=== PATIENT | male | born 1990 | race American Indian/Alaskan Native ===

== ENCOUNTER 2019-05-14 04:38 | Observation (INO) | payer SELFPAY ==
[2019-05-14] MEDS ORDERED: KEPPRA 1,000 MG/NS 0.75% 100ML 1,000 MG/100 ML BAG IV ONE (05:06)
[2019-05-14 05:26] LABS: Basophils # (Auto) 0.1 K/mm3 (0.0-0.1); Basophils % (Auto) 0.5 % (0.0-1.8); Hemoglobin 13.1 gm/dl (11.8-15.2); Lymphocytes % (Auto) 5.8 % (13.4-35.0); Mean Corpuscular HGB Conc 33 % (32-34); Mean Corpuscular Volume 97 fl (84-94); Monocytes # (Auto) 1.4 K/mm3 (0.0-0.8); Monocytes % (Auto) 8.6 % (0.0-7.3); Platelet Count 239 K/mm3 (140-440); Red Blood Count 4.12 M/mm3 (3.65-5.03); Red Cell Distribution Width 13.6 % (13.2-15.2)
[2019-05-14 05:44] LABS: Calcium 8.9 mg/dL (8.4-10.2)
--- NOTE | 2019-05-14 05:57 | XRay Report ---
CHEST 1 VIEW 05/14/2019 5:30 AM INDICATION / CLINICAL INFORMATION: tachypnea. COMPARISON: None available. FINDINGS: SUPPORT DEVICES: None. HEART / MEDIASTINUM: Cardiac silhouette is upper limits normal in size for AP technique. LUNGS / PLEURA: Suboptimal inspiratory effort No significant pulmonary or pleural abnormality. No pne umothorax. ADDITIONAL FINDINGS: No significant additional findings. IMPRESSION: 1. No acute findings. Signer Name: Anthony Ireland MD Signed: 05/14/2019 5:53 AM Workstation Name: [id number]
[2019-05-14] MEDS ORDERED: NACL 0.9% 1000 ML 1,000 ML IV ONE ×3 (06:10→12:00)
--- NOTE | 2019-05-14 06:55 | Emergency Department Report ---
HPI - General Chief Complaint: Seizure Time Seen by Provider: 05/14/19 06:00 - HPI HPI: 29 yo AA M presents to the ED after apparently having a seizure in bed just prior to presentation. He also had a witnessed seizure in route and was given 2.5 mg of Versed with resolution of the seizures. Prior to this second seizure, apparently the patient was more lucid than upon presentation to the ED and EMS says he has a hx of seizures and the patient said he was compliant with his Keppra. The patient has never been here before and is currently post-ictal and a poor historian. ED Past Medical Hx - Past Medical History Previous Medical History?: Yes Hx Seizures: Yes - Social History Smoking Status: Unknown if ever smoked ED Review of Systems ROS: Stated complaint: SEIZURE Other details as noted in HPI Comment: Unobtainable due to pts medical conditions Physical Exam - Physical Exam Vital Signs: Vital Signs 05/14/19 05/14/19 05/14/19 04:56 05:00 05:15 Temperature 98.4 F Pulse Rate 113 H 114 H 104 H Respiratory 22 36 H 23 Rate Blood Pressure 102/63 O2 Sat by Pulse 83 L Oximetry Physical Exam: GENERAL: Patient is ill-appearing. HENT: Normocephalic. Atraumatic. Patient has moist mucous membranes. EYES: Pupils equal reactive to light bilaterally. NECK: Supple. Trachea is midline. CHEST/LUNGS: Clear to auscultation. There is no respiratory distress noted. HEART/CARDIOVASCULAR: Regular. There is no tachycardia. There is no murmur. ABDOMEN: Abdomen is soft, nontender. Patient has normal bowel sounds. There is no abdominal distention. SKIN: Skin is warm and dry. NEURO: Patient is very sleepy and appears postictal. He is seen spontaneously moving his extremities. Withdraws from painful stimuli. The patient will mumble incoherently. MUSCULOSKELETAL: There is no obvious tenderness or deformity. There is no evidence of acute injury. ED Course Vital Signs 05/14/19 05/14/19 05/14/19 04:56 05:00 05:15 Temperature 98.4 F Pulse Rate 113 H 114 H 104 H Respiratory 22 36 H 23 Rate Blood Pressure 102/63 O2 Sat by Pulse 83 L Oximetry - ABG Interpretation Ph: 7.298 PCO2: 37 PO2: 61 Bicarbonate: 18 Interpretation: metabolic acidosis ED Medical Decision Making - Lab Data Result diagrams: 05/14/19 05:09 05/14/19 05:09 - EKG Data -: EKG Interpreted by Me EKG shows normal: sinus rhythm, axis (borderline left axis deviation), interval s, QRS complexes (incomplete right bundle branch block), ST-T waves Rate: normal - EKG Data When compared to previous EKG there are: previous EKG unavailable Interpretation: other (sinus rhythm, incomplete right bundle branch block) - Radiology Data Radiology results: report reviewed, image reviewed interpreted by me: Chest x-ray does not show any acute process. There are no pleural effusions, obvious pneumonia and there is no pneumothorax. CT HEAD WITHOUT CONTRAST INDICATION / CLINICAL INFORMATION: AMS. Seizure. TECHNIQUE: Axial imaging performed from the skull apex through the skull base without the use of contrast. Sagittal and coronal reformatted images. All CT scans at this location are performed using CT dose reduction for ALARA by means of automated exposure control. COMPARISON: None available. FINDINGS: CEREBRAL PARENCHYMA: No significant abnormality. No acute territorial infarct. HEMORRHAGE: None. EXTRA-AXIAL SPACES: Normal in size and morphology for the patient's age. VENTRICULAR SYSTEM: Normal in size and morphology for the patient's age. MIDLINE SHIFT OR HERNIATION: None. CEREBELLUM / BRAINSTEM: No significant abnormality. CALVARIUM: No significant abnormality. ORBITS: Normal as visualized. PARANASAL SINUSES / MASTOID AIR CELLS: Normal as visualized. SOFT TISSUES of HEAD: No significant abnormality. ADDITIONAL FINDINGS: None. IMPRESSION: Unremarkable CT head. - Medical Decision Making This patient presents after having an alleged seizure prior to arrival and a witnessed seizure in route. A CT scan of the head was done that did not show an y bleed, shift, mass, ischemia or any other acute process. Labs were mostly unremarkable and did not show any etiology of his symptoms. ABG showed some metabolic acidosis. Chest x-ray did not show any acute process. The patient has some hypoxemia and hypoxia but improves with nasal cannula and if necessary a Venturi mask. However the patient has been in the emergency department for about 5 hours prior to admission and still continues to be altered with a post ictal state. For all these reasons, the patient will be admitted to the hospital for further evaluation or treatment was accepted for admission by the hospitalist service. - Differential Diagnosis epilepsy, substance abuse, withdrawal, electrolyte abnormalities, dysrhythm Critical Care Time: Yes Critical care time in (mins) excluding proc time.: 31 Critical care attestation.: If time is entered above; I have spent that time in minutes in the direct care of this critically ill patient, excluding procedure time. Critical care time was spent on this patient and doing his initial evaluation, multiple re- evaluations, ordering and interpretation of labs and imaging, interpretation of ABG, treatment of his hypoxia/hypoxemia, discussion with the hospitalist service. Critical Care Time: 31 minutes ED Disposition Clinical Impression: Seizure, Hypoxemia, Acute metabolic encephalopathy Altered mental status Qualifiers: Altered mental status type: unspecified Qualified Code(s): R41.82 - Altered mental status, unspecified Disposition: DC-09 OP ADMIT IP TO THIS HOSP Is pt being admited?: Yes Condition: Serious Time of Disposition: 09:57
--- NOTE | 2019-05-14 08:34 | Cat Scan Report ---
CT HEAD WITHOUT CONTRAST INDICATION / CLINICAL INFORMATION: AMS. Seizure. TECHNIQUE: Axial imaging performed from the skull apex through the skull base without the use of cont rast. Sagittal and coronal reformatted images. All CT scans at this location are performed using CT dose reduction for ALARA by means of automated exposure control. COMPARISON: None available. FINDINGS: CEREBRAL PARENCHYMA: No significant abnormality. No acute territorial infarct. HEMORRHAGE: None. EXTRA-AXIAL SPACES: Normal in size and morphology for the patient's age. VENTRICULAR SYSTEM: Normal in size and morphology for the patient's age. MIDLINE SHIFT OR HERNIATION: None. CEREBELLUM / BRAINSTEM: No significant abnormality. CALVARIUM: No significant abnormality. ORBITS: Normal as visualized. PARANASAL SINUSES / MASTOID AIR CELLS: Normal as visualized. SOFT TISSUES of HEAD: No significant abnormality. ADDITIONAL FINDINGS: None. IMPRESSION: Unremarkable CT head. Signer Name: Ayaz Bone Jr, MD Signed: 05/14/2019 8:29 AM Workstation Name: [id number]
[2019-05-14 08:43] LABS: Amphetamine Screen,Urine PRESUMPTIVE NEGATIVE; Benzodiazepines Screen,Urine PRESUMPTIVE NEGATIVE; Cannabinoid Screen,Urine PRESUMPTIVE NEGATIVE; Cocaine Screen,Urine PRESUMPTIVE NEGATIVE; Opiate Screen,Urine PRESUMPTIVE NEGATIVE
[2019-05-14 08:59] LABS: Methadone Screen,Urine PRESUMPTIVE NEGATIVE
[2019-05-14 09:37] LABS: Alanine Aminotransferase 24 units/L (7-56); Albumin 3.9 g/dL (3.9-5)
[2019-05-14 09:51] LABS: Bilirubin,Direct < 0.2 mg/dL (0-0.2)
--- NOTE | 2019-05-14 10:09 | History and Physical Report ---
History of Present Illness Date of examination: 05/14/19 Date of admission: 05/14/19 Chief complaint: SEIZURE History of present illness: Requested admission for patient who is a 29 yo AA M presents to the ED after apparently having a seizure in bed just prior to presentation. He also had a witnessed seizure in route and was given 2.5 mg of Versed with resolution of the seizures. Prior to this second seizure, apparently the patient was more lucid than upon presentation to the ED and EMS says he has a hx of seizures and the patient said he was compliant with his Keppra. The patient has never been here before and is currently post-ictal and a poor historian. Patient remains post ictal during my exam, was able to mumble yes to hx of seizure but could not get any information further from him Past History Past Medical History: seizures Past Surgical History: Other (unable to obtain) Social history: full code, other (unable to further illcit) Family history: other (unable to obtain) Medications and Allergies Allergies Allergy/AdvReac Type Severity Reaction Status Date / Time Unable to Assess Allergy Unverified 05/14/19 05:58 Active Meds: Active Medications Acetaminophen (Tylenol) 650 mg PO Q4H PRN PRN Reason: Pain MILD(1-3)/Fever >100.5/AGUIRRE Albuterol (Proventil) 2.5 mg IH Q3HRT PRN PRN Reason: Shortness Of Breath Ondansetron HCl (Zofran) 4 mg IV Q8H PRN PRN Reason: Nausea And Vomiting Sodium Bicarbonate (Sodium Bicarbonate 50meq Syringe) 50 meq IV ONCE ONE Stop: 05/14/19 10:04 Sodium Chloride (Sodium Chloride Flush Syringe 10 Ml) 10 ml IV BID CAL Sodium Chloride (Sodium Chloride Flush Syringe 10 Ml) 10 ml IV PRN PRN PRN Reason: LINE FLUSH Review of Systems ROS unobtainable: due to mental status Constitutional: lethargy, no sweats Neurological: weakness, seizures, change in speech, change in mentation, confusion Exam - Constitutional Vitals: Temp Pulse Resp BP Pulse Ox 98.4 F 81 31 H 119/77 93 05/14/19 05:15 05/14/19 07:30 05/14/19 07:30 05/14/19 07:30 05/14/19 07:30 General appearance: Present: mild distress - EENT Eyes: Present: PERRL. Absent: scleral icterus, conjunctival injection, miosis, mydriasis ENT: hearing intact, clear oral mucosa, no dentition normal, no oropharyngeal erythema, no poor dentition, no thrush, no ulcerations - Neck Neck: Present: supple, normal ROM - Respiratory Respiratory effort: normal Respiratory: bilateral: diminished - Cardiovascular Rhythm: regular Heart Sounds: Present: S1 & S2. Absent: systolic murmur, diastolic murmur - Extremities Extremities: no ischemia, pulses intact, pulses symmetrical, No edema, Full ROM Peripheral Pulses: within normal limits - Abdominal General gastrointestinal: Present: soft, non-tender, non-distended, normal bowel sounds - Integumentary Integumentary: Present: clear, warm, dry - Musculoskeletal Musculoskeletal: other (unble to participate in exam) - Psychiatric Psychiatric: cooperative, other (lathergic) - Neurologic Neurologic: CNII-XII intact, moves all extremities - Allied Health Allied health notes reviewed: nursing Results - Labs CBC & Chem 7: 05/14/19 05:09 05/14/19 05:09 Labs: Laboratory Last Values WBC 16.5 K/mm3 (4.5-11.0) H 05/14/19 05:09 RBC 4.12 M/mm3 (3.65-5.03) 05/14/19 05:09 Hgb 13.1 gm/dl (11.8-15.2) 05/14/19 05:09 Hct 40.0 % (35.5-45.6) 05/14/19 05:09 MCV 97 fl (84-94) H 05/14/19 05:09 MCH 32 pg (28-32) 05/14/19 05:09 MCHC 33 % (32-34) 05/14/19 05:09 RDW 13.6 % (13.2-15.2) 05/14/19 05:09 Plt Count 239 K/mm3 (140-440) 05/14/19 05:09 Lymph % (Auto) 5.8 % (13.4-35.0) L 05/14/19 05:09 [place] % (Auto) 8.6 % (0.0-7.3) H 05/14/19 05:09 Eos % (Auto) 0.0 % (0.0-4.3) 05/14/19 05:09 Baso % (Auto) 0.5 % (0.0-1.8) 05/14/19 05:09 Lymph # 1.0 K/mm3 (1.2-5.4) L 05/14/19 05:09 [place] # 1.4 K/mm3 (0.0-0.8) H 05/14/19 05:09 Eos # 0.0 K/mm3 (0.0-0.4) 05/14/19 05:09 Baso # 0.1 K/mm3 (0.0-0.1) 05/14/19 05:09 Seg Neutrophils % 85.1 % (40.0-70.0) H 05/14/19 05:09 Seg Neutrophils # 14.0 K/mm3 (1.8-7.7) H 05/14/19 05:09 283.59 ng/mlDDU (0-234) H 05/14/19 09:03 POC ABG pH 7.298 (7.35-7.45) L 05/14/19 09:01 POC ABG pCO2 37.5 (35-45) 05/14/19 09:01 POC ABG pO2 61 (80-105) L 05/14/19 09:01 POC ABG HCO3 18.4 (22-26 mml/L) 05/14/19 09:01 POC ABG Total CO2 19 (23-27mmol/L) 05/14/19 09:01 POC ABG O2 Sat 88 05/14/19 09:01 POC ABG Base Excess -8 ((-2) - (+3)mmol/L) 05/14/19 09:01 21 % 05/14/19 09:01 Sodium 140 mmol/L (137-145) 05/14/19 05:09 Potassium 4.9 mmol/L (3.6-5.0) 05/14/19 05:09 Chloride 101.2 mmol/L (98-107) 05/14/19 05:09 Carbon Dioxide 15 mmol/L (22-30) L 05/14/19 05:09 29 mmol/L 05/14/19 05:09 BUN 14 mg/dL (9-20) 05/14/19 05:09 1.7 mg/dL (0.8-1.5) H 05/14/19 05:09 Estimated GFR 57 ml/min 05/14/19 05:09 8 % 05/14/19 05:09 Glucose 124 mg/dL (75-100) H 05/14/19 05:09 Calcium 8.9 mg/dL (8.4-10.2) 05/14/19 05:09 Magnesium 2.30 mg/dL (1.7-2.3) 05/14/19 05:09 0.20 mg/dL (0.1-1.2) 05/14/19 07:23 < 0.2 mg/dL (0-0.2) 05/14/19 07:23 0.0 mg/dL 05/14/19 07:23 AST 37 units/L (5-40) 05/14/19 07:23 ALT 24 units/L (7-56) 05/14/19 07:23 82 units/L (35-129) 05/14/19 07:23 40.0 umol/L (25-60) 05/14/19 07:23 < 0.010 ng/mL (0.00-0.029) 05/14/19 08:51 7.6 g/dL (6.3-8.2) 05/14/19 07:23 3.9 g/dL (3.9-5) 05/14/19 07:23 1.1 % 05/14/19 07:23 Presumptive negative 05/14/19 08:23 Presumptive negative 05/14/19 08:23 Ur Barbiturates Screen Presumptive negative 05/14/19 08:23 Ur Phencyclidine Scrn Presumptive negative 05/14/19 08:23 Ur Amphetamines Screen Presumptive negative 05/14/19 08:23 U Benzodiazepines Scrn Presumptive negative 05/14/19 08:23 Presumptive negative 05/14/19 08:23 U Marijuana (THC) Screen Presumptive negative 05/14/19 08:23 Disclamer 05/14/19 08:23 Plasma/Serum Alcohol < 0.01 % (0-0.07) 05/14/19 07:23 Assessment and Plan Assessment and plan: 29 yo AA M presents to the ED after apparently having a seizure in bed just prior to presentation. He also had a witnessed seizure in route and was given 2.5 mg of Versed with resolution of the seizures. Prior to this second seizure, apparently the patient was more lucid than upon presentation to the ED and EMS says he has a hx of seizures and the patient said he was compliant with his Keppra. The patient has never been here before and is currently post-ictal and a poor historian. Patient remains post ictal during my exam, was able to mumble yes to hx of seizure but could not get any information further from him imaging CT head: Negative Cxr: negative Seizure Acute Metabolic encephalopathy secondary to seizure-post ictal state Metabolic Acidosis with some compensation Hypoxia Leukocytosis Elevated D.dimer SIRS without organ dysfunction Admit to Telemetry Seizure and Aspiration precautions Monitor for any Fever development, low threshold to start work up Hydrate, Hold off on abx at this time. Repeat ABG in am Neurology consult and defer need for MRI to them Ativan PRN Give bicarb Obtain home medications Oxygen via NC due to hypoxia Diet when fully awake Advance Directives: Yes Plan of care discussed with patient/family: Yes
[2019-05-14] MEDS ORDERED: SODIUM CHLORIDE FLUSH SYRINGE 10 ML IV PRN (10:30)
[2019-05-14] MEDS ORDERED: ZOFRAN IV PRN (10:30)
[2019-05-14] MEDS ORDERED: TYLENOL PO PRN (10:30)
[2019-05-14] MEDS ORDERED: ATIVAN IV PRN (10:30)
[2019-05-14] MEDS ORDERED: PROVENTIL IH PRN (11:00)
--- NOTE | 2019-05-14 13:35 | Consultation ---
Past History Past Medical History: seizures Past Surgical History: Other (unable to obtain) Social history: full code, other (unable to further illcit) Family history: other (unable to obtain) Medications and Allergies Allergies Allergy/AdvReac Type Severity Reaction Status Date / Time Unable to Assess Allergy Unverified 05/14/19 05:58 Active Meds: Active Medications Acetaminophen (Tylenol) 650 mg PO Q4H PRN PRN Reason: Pain MILD(1-3)/Fever >100.5/AGUIRRE Albuterol (Proventil) 2.5 mg IH Q3HRT PRN PRN Reason: Shortness Of Breath Sodium Chloride (Nacl 0.9% 1000 Ml) 1,000 mls @ 75 mls/hr IV DIRECT CAL Lorazepam (Ativan) 1 mg IV Q4H PRN PRN Reason: Seizures Ondansetron HCl (Zofran) 4 mg IV Q8H PRN PRN Reason: Nausea And Vomiting Sodium Chloride (Sodium Chloride Flush Syringe 10 Ml) 10 ml IV BID CAL Sodium Chloride (Sodium Chloride Flush Syringe 10 Ml) 10 ml IV PRN PRN PRN Reason: LINE FLUSH Physical Examination - Vital Signs Vital Signs: Vital Signs Pulse Resp 113 H 22 05/14/19 04:56 05/14/19 04:56 Results - Laboratory Findings CBC and BMP: 05/14/19 05:09 05/14/19 05:09 Abnormal Lab Findings: Abnormal Labs 05/14/19 05/14/19 05/14/19 05:09 05:09 09:01 WBC 16.5 H MCV 97 H Lymph % (Auto) 5.8 L [place] % (Auto) 8.6 H Lymph # 1.0 L [place] # 1.4 H Seg Neutrophils % 85.1 H Seg Neutrophils # 14.0 H D-Dimer POC ABG pH 7.298 L POC ABG pO2 61 L Carbon Dioxide 15 L Creatinine 1.7 H Glucose 124 H 05/14/19 09:03 WBC MCV Lymph % (Auto) [place] % (Auto) Lymph # [place] # Seg Neutrophils % Seg Neutrophils # D-Dimer 283.59 H POC ABG pH POC ABG pO2 Carbon Dioxide Creatinine Glucose Assessment and Plan 29 YR OLD WITH HIST OF SEIZURE DISORDER WHO DEVELOPED AN EPISODE OF SEIZURE AND DEVELOPED ANOTHER EPISODE OF SEIZURE WHILE BEING BROUGHT TO THE HOSPITAL. HE WAS GIVEN VERSED ON THE WAY. UPON ADMISSION WORK SHOWED EVIDENCE OF INCREAESD WBC COUNT AND INCREASED NETROPHIL. ELECTROLYTES WERE WITH IN NORMAL LIMIT ALTHOUGH NO CALCIUM AND MAGNESIUM LEVEL WAS CHECKED. CT SACN OF THE HEAD DID NOT SHOW ANY ACUTE OR CHRONIC INTRACRANIAL PROCESS. PHYSICAL EXAMINATION. PATIENT IS DROWSY, MOST LIKELY FROM MEDICATION EFFECT. ANSWERS QUESTIONS APPROPRIATELY AT TIMES AND DOES NOT ANSWER QUESTIONS AT TIMES.MAKES EYE CONTACT. HEART- NORMAL RATE AND RYTHM. CAROTIDS-BOTH PALPABLE, CRANIAL NERVES- ALL WITH IN NORMAL LIMIT.NO FACIAL ASYMMETRY,PUPILS REACT TO LIGHT,EOMI,OTHER CRNIAL NERVES ARE ALSO WITH IN NORMAL LIMIT, MOTOR- NO ASYMMETRY OF STRENGTH BETWEEN UPPER AND LOWER EXTREMITIES ON BOTH SIDES REFLEXES- ALL REFLEXES ARE SYMMETRIC AND ARE WITH IN NORMAL LIMIT WITH BUILATERAL DOWN GOING TOES. SENSORY- GROSSLY WITH IN NORMAL LIMIT. IMPRESSION. 1. RECURRENCE OF SEIZURE IN A KNOWN SEIZURE PATIENT,PROBABLY DUE TO INFECTION OR NON COMPLIANCE WITH MEDICATION 2, MAY ALSO HAVE CALCIUM OR MAGNESIUM ABNORMALITIES ADDITIONALLY. RECOMMEND. 1. PLEASE START HIM ON KEPPRA 500MG BID. 2, SEIZURE PRECAUTION. 3. PLEASE CHECK SERUM ELECTROLYTES INCLUDING CALCIUM AND MAGNESIUM 4. TREAT INFECTION INFECTION CAN PRECIPITATE SEIZURE.
--- NOTE | 2019-05-14 13:52 | Vascular Lab Report ---
DUPLEX DOPPLER LOWER EXTREMITY VEINS, BILATERAL INDICATION: Evaluate for DVT. Elevated d-dimer TECHNIQUE: Duplex doppler imaging was performed through the veins of both lower extremities using ve nous compression and other maneuvers. COMPARISON: No relevant prior imaging study available. FINDINGS: Right Common femoral vein: Negative. Right Superficial femoral vein: Negative. Right Popliteal vein: Negative. Right Calf veins: Negative. Left Common femoral vein: Negative. Left Superficial femoral vein: Negative. Left Popliteal vein: Negative. Left Calf veins: Negative. Additional findings: None.. IMPRESSION: No sonographic evidence for DVT in either lower extremity. Signer Name: Ayaz Bone Jr, MD Signed: 05/14/2019 1:47 PM Workstation Name: [id number]
[2019-05-14 14:42] LABS: Calcium 8.7 mg/dL (8.4-10.2)
[2019-05-14] MEDS ORDERED: APRESOLINE IV PRN (16:35)
[2019-05-14] MEDS: SODIUM CHLORIDE FLUSH SYRINGE 10 ML IV SCH ×2 (16:48→21:55)
[2019-05-14] MEDS: NACL 0.9% 1000 ML 1,000 ML IV SCH (19:04)
[2019-05-14] MEDS: KEPPRA 500 MG in D5W 100 ML IV SCH (21:54)
[2019-05-15] MEDS: NACL 0.9% 1000 ML 1,000 ML IV SCH (06:34)
--- NOTE | 2019-05-15 09:28 | Discharge Summary ---
Providers - Providers Date of Admission: 05/14/19 09:57 Attending physician: PALLAVI LANDIS MD 05/14/19 10:03 Consult to Physician [CONS] Routine Comment: Consulting Provider: LAVELL FOSTER Physician Instructions: Reason For Exam: seizure Primary care physician: [employer] INSPECTOR Hospitalization Reason for admission: seizure Condition: Serious Hospital course: 29 yo AA M presents to the ED after apparently having a seizure in bed just prior to presentation. He also had a witnessed seizure in route and was given 2.5 mg of Versed with resolution of the seizures. Prior to this second seizure, apparently the patient was more lucid than upon presentation to the ED and EMS says he has a hx of seizures and the patient said he was compliant with his Keppra. The patient has never been here before and is currently post-ictal and a poor historian. Patient remains post ictal during my exam, was able to mumble yes to hx of seizure but could not get any information further from him * Electrolytes stable * Patient refused further labs, states he is compliant with his meds, and reaffirms that he does not drive and according to [place] law. Also advised to avoid operating any motorized machinary, swimming, diving till cleared by his PCP * demands to go home * No new complaints. Checked o2 on room air sat * Patient was seen by neurology, restarted on medications. * patient had an angry disposition this am and not willing to answer questions. * He confirmed that he takes Keppra but not to dose, I advised him to continue his home dose medication if at a higher dose than the prescription given imaging CT head: Negative Cxr: negative Seizure Acute Metabolic encephalopathy secondary to seizure-post ictal state Metabolic Acidosis with some compensation Hypoxia Leukocytosis Elevated D.dimer SIRS without organ dysfunction Disposition: DC-01 TO HOME OR SELFCARE Time spent for discharge: 35 mins Core Measure Documentation - Palliative Care Palliative Care/ Comfort Measures: Not Applicable - Core Measures Any of the following diagnoses?: none Exam - Constitutional Vitals: Temp Pulse Resp BP Pulse Ox 98.4 F 71 18 131/68 99 05/15/19 08:00 05/15/19 08:00 05/15/19 08:00 05/15/19 08:00 05/15/19 08:00 General appearance: Present: no acute distress, well-nourished - EENT Eyes: Present: PERRL, EOM intact ENT: hearing intact, clear oral mucosa, dentition normal - Neck Neck: Present: supple, normal ROM - Respiratory Respiratory effort: normal Respiratory: bilateral: CTA - Cardiovascular Rhythm: regular Heart Sounds: Present: S1 & S2. Absent: systolic murmur, diastolic murmur - Extremities Extremities: no ischemia, pulses intact, pulses symmetrical, No edema, normal temperature, normal color, Full ROM Peripheral Pulses: within normal limits - Abdominal General gastrointestinal: Present: soft, non-tender, non-distended, normal bowel sounds - Integumentary Integumentary: Present: clear, warm, dry - Musculoskeletal Musculoskeletal: strength equal bilaterally - Psychiatric Psychiatric: appropriate mood/affect, intact judgment & insight, memory intact, cooperative - Neurologic Neurologic: CNII-XII intact, moves all extremities - Allied Health Allied health notes reviewed: nursing Plan Activity: no driving until cleared by PCP Diet: regular Special Instructions: record daily weights, record daily BP diary, smoking cessation Additional Instructions: Follow with your primary neurologist in 3-5 DAYS Follow up with: PRIMARY CARE, [Primary Care Provider] - 3-5 Days Prescriptions: levETIRAcetam [Keppra TAB] 500 mg PO BID #60 tablet levoFLOXacin [Levaquin] 750 mg PO QDAY #3 tablet
[2019-05-15] MEDS: KEPPRA 500 MG in D5W 100 ML IV SCH (11:47)
[2019-05-15] MEDS: SODIUM CHLORIDE FLUSH SYRINGE 10 ML IV SCH (11:50)
[2019-05-15 12:02] VITALS: BP 120/70
== END 2019-05-15 13:57 | disposition home or self-care (01) ==
LOC: ED 04:38 → 4A 09:57
PROVIDERS: ADMIT Internal Medicine; ATTEND Internal Medicine
DX: R56.9 Unspecified convulsions (principal); R65.10 Systemic inflammatory response syndrome (SIRS) of non-infectious origin without acute organ dysfunction; G93.41 Metabolic encephalopathy; E87.2 Acidosis; R09.02 Hypoxemia; R79.89 Other specified abnormal findings of blood chemistry
CPT/HCPCS: 36415; 70450; 71045; 80048; 80076; 80307; 82140; 82310; 82803; 83735; 84443; 84484; 85025; 85379; 93005; 93010; 93970; 94760; 95819; 96374; 96375; 96376; 99291; G0378; J0360; J1953; J7030; 80320; G0480

== ENCOUNTER 2020-03-14 21:37 | Observation (INO) | payer OTHER ==
[2020-03-14] MEDS ORDERED: levETIRAcetam 1000 MG/NS 0.75% 1,000 MG/100 ML BAG IV ONE (21:45)
--- NOTE | 2020-03-14 21:51 | Emergency Department Report ---
HPI - HPI HPI: Room 3 The patient is a 29-year-old male present with a chief complaint of seizures. Per EMS the patient was picked up at home after having a seizure. The patient was postictal upon EMSs arrival. They said at one point he opened his eyes but never spoke. The patient had another seizure with EMS and was administered Ativan. Patient is currently postictal. EMS states that they are not aware of which medications the patient takes for his seizures or if he has been compliant <ROSAURA PONCE - Last Filed: 03/14/20 21:46> <CATHERINE STRICKLAND - Last Filed: 03/15/20 09:35> - General Time Seen by Provider: 03/14/20 21:45 ED Past Medical Hx - Past Medical History Hx Seizures: Yes - Family History Family history: no significant - Social History Smoking Status: Unknown if ever smoked <ROSAURA PONCE - Last Filed: 03/14/20 21:46> <CATHERINE STRICKLAND - Last Filed: 03/15/20 09:35> - Medications Home Medications: Home Medications Medication Instructions Recorded Confirmed Last Taken Type levETIRAcetam [Keppra TAB] 500 mg PO BID #60 tablet 05/15/19 Unknown Rx levoFLOXacin [Levaquin] 750 mg PO QDAY #3 tablet 05/15/19 Unknown Rx ED Review of Systems ROS: Stated complaint: SEIZURE Other details as noted in HPI Comment: Unobtainable due to pts medical conditions (Postictal) <ROSAURA PONCE - Last Filed: 03/14/20 21:46> ROS: Stated complaint: SEIZURE Other details as noted in HPI <MARCO ACATHERINE - Last Filed: 03/15/20 09:35> Physical Exam - Physical Exam Physical Exam: GENERAL: The patient is well-developed well-nourished male postictal on stretcher with snoring respirations. [] HEENT: Normocephalic. Atraumatic. Pupils 3 mm bilaterally NECK: Supple. Trachea midline CHEST/LUNGS: Clear to auscultation. There is no respiratory distress noted. HEART/CARDIOVASCULAR: Regular. There is no tachycardia. There is no gallop rub or murmur. ABDOMEN: Abdomen is soft, nontender. Patient has normal bowel sounds. There is no abdominal distention. SKIN: There is no rash. There is no edema. There is no diaphoresis. NEURO: The patient is postictal MUSCULOSKELETAL: There is no evidence of acute injury. <ROSAURA PONCE - Last Filed: 03/14/20 21:46> - Physical Exam Vital Signs: Vital Signs 03/14/20 03/14/20 03/15/20 21:37 22:04 02:45 Temperature 98.9 F Pulse Rate 131 H 129 H 94 H Respiratory 34 H 35 H 22 Rate Blood Pressure 126/72 127/80 [Left] O2 Sat by Pulse 92 94 97 Oximetry 03/15/20 03/15/20 03/15/20 05:52 06:00 06:10 Temperature Pulse Rate 90 94 H Respiratory 22 18 18 Rate Blood Pressure 117/84 119/74 [Left] O2 Sat by Pulse 98 95 Oximetry <CATHERINE STRICKLAND - Last Filed: 03/15/20 09:35> ED Course Vital Signs 03/14/20 03/14/20 03/15/20 21:37 22:04 02:45 Temperature 98.9 F Pulse Rate 131 H 129 H 94 H Respiratory 34 H 35 H 22 Rate Blood Pressure 126/72 127/80 [Left] O2 Sat by Pulse 92 94 97 Oximetry 03/15/20 03/15/20 03/15/20 05:52 06:00 06:10 Temperature Pulse Rate 90 94 H Respiratory 22 18 18 Rate Blood Pressure 117/84 119/74 [Left] O2 Sat by Pulse 98 95 Oximetry - Reevaluation(s) Reevaluation #1: 03/15/20 09:34 Patient resting comfortably in her stretcher at this time. Noncontrast CT scan of the brain is reviewed by myself, I do not see acute findings. Formal interpretation is pending. As per Dr. Ponce's recommended plan of care, patient to be admitted for supportive care, rhabdomyolysis, and prolonged postictal state No convulsive activity has been noted since I have Started my shift. <CATHERINE STRICKLAND - Last Filed: 03/15/20 09:35> ED Medical Decision Making - Differential Diagnosis Epilepsy, status epilepticus <ROSAURA PONCE Last Filed: 03/14/20 21:46> - Lab Data Result diagrams: 03/14/20 22:03 03/14/20 22:03 <CATHERINE STRICKLAND - Last Filed: 03/15/20 09:35> Critical care attestation.: If time is entered above; I have spent that time in minutes in the direct care of this critically ill patient, excluding procedure time. <ROSAURA PONCE - Last Filed: 03/14/20 21:46> Critical care attestation.: If time is entered above; I have spent that time in minutes in the direct care of this critically ill patient, excluding procedure time. <CATHERINE STRICKLAND - Last Filed: 03/15/20 09:35> ED Disposition <ROSAURA PONCE - Last Filed: 03/14/20 21:46> Is pt being admited?: Yes Does the pt Need Aspirin: No <CATHERINE STRICKLAND - Last Filed: 03/15/20 09:35> Clinical Impression: Seizure, Rhabdomyolysis, Postictal state Disposition: DC-09 OP ADMIT IP TO THIS HOSP Condition: Good
[2020-03-14] MEDS ORDERED: ONDANSETRON 4 MG/2 ML INJ IV ONE (21:53)
[2020-03-14 22:19] LABS: Basophils # (Auto) 0.1 K/mm3 (0.0-0.1); Basophils % (Auto) 0.4 % (0.0-1.8); Eosinophils # (Auto) 0.1 K/mm3 (0.0-0.4); Eosinophils % (Auto) 0.4 % (0.0-4.3); Hematocrit 42.9 % (35.5-45.6); Hemoglobin 13.7 gm/dl (11.8-15.2); Lymphocytes # (Auto) 2.8 K/mm3 (1.2-5.4); Lymphocytes % (Auto) 18.8 % (13.4-35.0); Mean Corpuscular HGB Conc 32 % (32-34); Mean Corpuscular Volume 100 fl (84-94); Monocytes # (Auto) 0.9 K/mm3 (0.0-0.8); Monocytes % (Auto) 6.1 % (0.0-7.3); Platelet Count 260 K/mm3 (140-440); Red Blood Count 4.29 M/mm3 (3.65-5.03); Red Cell Distribution Width 13.8 % (13.2-15.2)
[2020-03-14 22:35] LABS: Alanine Aminotransferase 37 units/L (7-56); Albumin 4.8 g/dL (3.9-5); BUN/Creatinine Ratio 9; Blood Urea Nitrogen 14 mg/dL (9-20); Hemolysis Index 11
--- NOTE | 2020-03-14 22:48 | XRay Report ---
CHEST 1 VIEW INDICATION / CLINICAL INFORMATION: Multiple seizures, hypoxia. COMPARISON: 05/14/2019 FINDINGS: SUPPORT DEVICES: None. HEART / MEDIASTINUM: No significant abnormality. LUNGS / PLEURA: Questionable subsegmental atelectasis in the right lung base No pneumothorax. ADDITIONAL FINDINGS: No significant additional findings. IMPRESSION: Suboptimal inspiration. Questionable subsegmental atelectasis in the right lung base Signer Name: Samuel Palencia MD FACR Signed: 03/14/2020 10:44 PM Workstation Name: [id number]
[2020-03-14] MEDS ORDERED: LORazepam 2 MG/ML VIAL ONE (23:26)
[2020-03-15] MEDS ORDERED: LORazepam 2 MG/ML VIAL IV ONE (01:48)
[2020-03-15] MEDS ORDERED: SODIUM CHLORIDE 0.9% 1000 ML 1,000 ML IV ONE ×2 (06:13)
--- NOTE | 2020-03-15 09:38 | Cat Scan Report ---
NONENHANCED CT SCAN OF THE HEAD: INDICATION / CLINICAL INFORMATION: 29 years Male; Multiple seizures. TECHNIQUE: Routine CT head without contrast. All CT scans at this location are performed using CT dos e reduction for ALARA by means of automated exposure control. COMPARISON: CT scan of the head from 05/14/2019 FINDINGS: BRAIN / INTRACRANIAL CONTENTS No space taking lesion in the brain especially in the frontal and temporal lobes. No CT findings to s uggest acute parenchymal lesion in the brain. Midline structures are normal. Periventricular and deep hemispheric white matter are symmetric. No obvious sulcation anomaly seen. CT findings remain unchan ged. Given the history of seizures, temporal horn tips are dilated bilaterally. In there is no previous wo rkup for chronic seizures, MRI scan would be helpful to evaluate the hippocampi and focal cortical dy splasia. CRANIOCERVICAL JUNCTION: No significant abnormality. ORBITS: No significant abnormality of visualized orbits. SINUSES / MASTOIDS: No significant abnormality of the visualized paranasal sinuses or mastoid air inez ls. ADDITIONAL FINDINGS: Muscles of mastication appear prominent bilaterally. Is there history of bruxism IMPRESSION: No acute parenchymal lesion in the brain CT findings remain unchanged Tips of the temporal horns are mildly dilated if there is no previous workup for chronic seizures, MR I scan would be helpful to evaluate the hippocampi and to exclude focal cortical dysplasia.. Signer Name: Emily Smith MD Signed: 03/15/2020 9:33 AM Workstation Name: [id number]
[2020-03-15] MEDS ORDERED: ONDANSETRON 4 MG/2 ML INJ IV PRN (11:24)
[2020-03-15] MEDS ORDERED: ACETAMINOPHEN 325 MG TAB PO PRN (11:24)
--- NOTE | 2020-03-15 11:24 | History and Physical Report ---
History of Present Illness Date of examination: 03/15/20 Date of admission: 03/15/20 09:36 Chief complaint: sz d/o History of present illness: The patient is a 29-year-old male present with a chief complaint of seizures. Per EMS the patient was picked up at home after having a seizure. The patient was postictal upon EMSs arrival. They said at one point he opened his eyes but never spoke. The patient had another seizure with EMS and was administered Ativan. Patient is currently postictal. EMS states that they are not aware of which medications the patient takes for his seizures or if he has been compliant. All the history was obtained from the ER record. Past History Past Medical History: seizures Past Surgical History: Other (Unable to obtain due to mental status) Social history: other (Unable to obtain due to mental status) Family history: other (Unable to obtain due to mental status) Medications and Allergies Allergies Allergy/AdvReac Type Severity Reaction Status Date / Time Unable to Assess Allergy Unverified 05/14/19 05:58 Home Medications Medication Instructions Recorded Confirmed Last Taken Type levETIRAcetam [Keppra TAB] 500 mg PO BID #60 tablet 05/15/19 Unknown Rx levoFLOXacin [Levaquin] 750 mg PO QDAY #3 tablet 05/15/19 Unknown Rx Review of Systems ROS unobtainable: due to mental status Exam - Constitutional Vitals: Temp Pulse Resp BP Pulse Ox 98.9 F 94 H 18 119/74 95 03/14/20 21:37 03/15/20 06:10 03/15/20 06:10 03/15/20 06:10 03/15/20 06:10 General appearance: Present: no acute distress, well-nourished - EENT Eyes: Present: PERRL ENT: hearing intact, clear oral mucosa - Neck Neck: Present: supple, normal ROM - Respiratory Respiratory effort: normal Respiratory: bilateral: CTA - Cardiovascular Heart Sounds: Present: S1 & S2. Absent: rub, click - Extremities Extremities: pulses symmetrical, No edema Peripheral Pulses: within normal limits - Abdominal General gastrointestinal: Present: soft, non-tender, non-distended, normal bowel sounds Male genitourinary: Present: normal - Integumentary Integumentary: Present: clear, warm, dry - Musculoskeletal Musculoskeletal: gait normal, strength equal bilaterally - Psychiatric Psychiatric: appropriate mood/affect, intact judgment & insight - Neurologic Neurologic: CNII-XII intact, moves all extremities Results - Labs CBC & Chem 7: 03/14/20 22:03 03/14/20 22:03 Labs: Laboratory Last Values WBC 14.9 K/mm3 (4.5-11.0) H 03/14/20 22:03 RBC 4.29 M/mm3 (3.65-5.03) 03/14/20 22:03 Hgb 13.7 gm/dl (11.8-15.2) 03/14/20 22:03 Hct 42.9 % (35.5-45.6) 03/14/20 22:03 MCV 100 fl (84-94) H 03/14/20 22:03 MCH 32 pg (28-32) 03/14/20 22:03 MCHC 32 % (32-34) 03/14/20 22:03 RDW 13.8 % (13.2-15.2) 03/14/20 22:03 Plt Count 260 K/mm3 (140-440) 03/14/20 22:03 Lymph % (Auto) 18.8 % (13.4-35.0) 03/14/20 22:03 [place] % (Auto) 6.1 % (0.0-7.3) 03/14/20 22:03 Eos % (Auto) 0.4 % (0.0-4.3) 03/14/20 22:03 Baso % (Auto) 0.4 % (0.0-1.8) 03/14/20 22:03 Lymph # 2.8 K/mm3 (1.2-5.4) 03/14/20 22:03 [place] # 0.9 K/mm3 (0.0-0.8) H 03/14/20 22:03 Eos # 0.1 K/mm3 (0.0-0.4) 03/14/20 22:03 Baso # 0.1 K/mm3 (0.0-0.1) 03/14/20 22:03 Seg Neutrophils % 74.3 % (40.0-70.0) H 03/14/20 22:03 Seg Neutrophils # 11.1 K/mm3 (1.8-7.7) H 03/14/20 22:03 Sodium 142 mmol/L (137-145) 03/14/20 22:03 Potassium 4.3 mmol/L (3.6-5.0) 03/14/20 22:03 Chloride 101.3 mmol/L (98-107) 03/14/20 22:03 Carbon Dioxide 12 mmol/L (22-30) L 03/14/20 22:03 Anion Gap 33 mmol/L 03/14/20 22:03 BUN 14 mg/dL (9-20) 03/14/20 22:03 Creatinine 1.5 mg/dL (0.8-1.5) 03/14/20 22:03 Estimated GFR > 60 ml/min 03/14/20 22:03 BUN/Creatinine Ratio 9 % 03/14/20 22:03 Glucose 126 mg/dL (75-100) H 03/14/20 22:03 Calcium 9.0 mg/dL (8.4-10.2) 03/14/20 22:03 Magnesium 2.20 mg/dL (1.7-2.3) 03/14/20 22:03 Total Bilirubin 0.20 mg/dL (0.1-1.2) 03/14/20 22:03 AST 62 units/L (5-40) H 03/14/20 22:03 ALT 37 units/L (7-56) 03/14/20 22:03 Alkaline Phosphatase 81 units/L (35-129) 03/14/20 22:03 Total Creatine Kinase 3430 units/L (55-170) H 03/14/20 22:03 Total Protein 8.4 g/dL (6.3-8.2) H 03/14/20 22:03 Albumin 4.8 g/dL (3.9-5) 03/14/20 22:03 Albumin/Globulin Ratio 1.3 % 03/14/20 22:03 Watson/IV: IV Catheter Type [Left Wrist] INT / Saline Lock Assessment and Plan Assessment and plan: Acute encephalopathy. Etiology secondary to post ictal state from seizure. Continue supportive care and monitor closely. Treat underlying causes. Status epilepticus/seizure disorder. Continue Keppra IV. Neurology consultation. Seizure precautions. Rhabdomyolysis. Continue IV fluid hydration follow-up CK in the morning.
[2020-03-15] MEDS: DEXTROSE 50% IN WATER (25GM) 50 ML SYRINGE IV PRN (13:09)
[2020-03-15] MEDS: SODIUM CHLORIDE 0.9% 1000 ML 1,000 ML IV SCH (13:13)
--- NOTE | 2020-03-15 13:24 | Consultation ---
History of Present Illness Consult date: 03/15/20 Reason for Consult: Seizure Chief complaint: Seizure History of present illness: Patient is a 29 y/o man w/ a h/o seizures. He presented yesterday after he was noted to have had a seizure. He was noted to have another seizure by EMS. Patient was then brought to [facility] for further evaluation. He was reportedly noted to be post-ictal. Of note, patient was admitted with a seizure in May 2019, with a seizure at that time as well, and was started on keppra. It is uncertain if patient has been compliant with it. Past History Past Medical History: seizures Past Surgical History: Other (Unable to obtain due to mental status) Social history: other (Unable to obtain due to mental status) Family history: other (Unable to obtain due to mental status) Medications and Allergies Allergies Allergy/AdvReac Type Severity Reaction Status Date / Time Unable to Assess Allergy Unverified 05/14/19 05:58 Home Medications Medication Instructions Recorded Confirmed Last Taken Type levETIRAcetam [Keppra TAB] 500 mg PO BID #60 tablet 05/15/19 Unknown Rx levoFLOXacin [Levaquin] 750 mg PO QDAY #3 tablet 05/15/19 Unknown Rx Active Meds: Active Medications Acetaminophen (Tylenol) 650 mg PO Q4H PRN PRN Reason: Pain MILD(1-3)/Fever >100.5/AGUIRRE Dextrose (D50w (25gm) Syringe) 50 ml IV Q30MIN PRN; Protocol PRN Reason: Hypoglycemia Last Admin: 03/15/20 13:09 Dose: 50 ml Documented by: Enoxaparin Sodium (Enoxaparin) 40 mg SUB-Q QDAY@2200 CAL Sodium Chloride (Nacl 0.9% 1000 Ml) 1,000 mls @ 75 mls/hr IV DIRECT CAL Last Admin: 03/15/20 13:13 Dose: 75 mls/hr Documented by: Ondansetron HCl (Zofran) 4 mg IV Q8H PRN PRN Reason: Nausea And Vomiting Sodium Chloride (Sodium Chloride Flush Syringe 10 Ml) 10 ml IV BID CAL Sodium Chloride (Sodium Chloride Flush Syringe 10 Ml) 10 ml IV PRN PRN PRN Reason: LINE FLUSH Review of Systems ROS unobtainable: due to mental status Physical Examination - Vital Signs Vital Signs: Vital Signs Temp Pulse Resp BP Pulse Ox 98.9 F 131 H 34 H 126/72 92 03/14/20 21:37 03/14/20 21:37 03/14/20 21:37 03/14/20 21:37 03/14/20 21:37 - Physical Exam Narrative exam: Patient is lethargic, moves arms to phsyical stimulus, nonverbal. No gaze deviation noted. PERRL. Noted to have spontaneous movement in all extremities. Not withdrawing to pain in any extremity. Results - Laboratory Findings CBC and BMP: 03/14/20 22:03 03/14/20 22:03 Abnormal Lab Findings: Abnormal Labs 03/14/20 03/14/20 03/15/20 22:03 22:03 13:16 WBC 14.9 H MCV 100 H [place] # 0.9 H Seg Neutrophils % 74.3 H Seg Neutrophils # 11.1 H Carbon Dioxide 12 L Glucose 126 H POC Glucose 66 L AST 62 H Total Creatine Kinase 3430 H Total Protein 8.4 H Assessment and Plan Patient is a 29 y/o man w/ a h/o seizures, who p/w seizure at home and also noted by EMS en route to hospital. According to the patient's clinical findings, he has had a seizure. Plan: 1. Seizure: - CT head: No acute abnormalities. - Check EEG to rule out status epilepticus. To be interpreted by in-house neurologist. - Increase keppra to 750mg BID. -No driving until cleared by DMV/DPS. - If patient has a seizure lasting >2 minutes, recommend giving ativan 1mg IV stat. If seizure does not resolve within 2 minutes, can repeat x1. Please call p rimary team and neurology stat if patient has a seizure. - Check UDS. - Further workup/management of possible infection/metabolic abnormalities per primary team, as patient found to have elevated WBC. - Will continue to monitor patient. Thank you for allowing me to take part in the care of this patient. Adeel Brasher MD Neurology This clinical encounter was provided via live telemedicine platform. Consultative service was provided for neurology to support local providers. The Acute Teleneurology team should be contacted with any neurologic worsening or clinical changes, new test results, or new patient history that is reported to or discovered by the local team following completion of the teleneurology consultation, specifically that which has the potential to impact the consultat jessica recommendations. Patient/Family was informed the Neurology Consult would happen via TeleHealth consult by way of interactive audio and video telecommunications and consented to receiving care in this manner. Due to the potential for life-threatening deterioration due to underlying neurologic illness, and limited resources available for patient care, telemedicine was used as means of patient care. Telemedicine consultation is limited in the extent of physical exam that can be virtually provided. Time spent evaluating patient includes time for face to face visit via telemedicine, review of medical records, imaging studies and discussion of findings with providers, the patient and/or family.
[2020-03-15] MEDS: levETIRAcetam 750 MG in DEXTROSE 5% IN WATER 100 ML IV SCH ×2 (14:58→21:08)
[2020-03-15] MEDS: ENOXAPARIN 40 MG/0.4 ML INJ SUB-Q SCH (21:08)
[2020-03-16 07:57] LABS: Basophils # (Auto) 0.1 K/mm3 (0.0-0.1); Basophils % (Auto) 0.6 % (0.0-1.8); Eosinophils # (Auto) 0.1 K/mm3 (0.0-0.4); Hemoglobin 13.5 gm/dl (11.8-15.2); Lymphocytes # (Auto) 2.1 K/mm3 (1.2-5.4); Lymphocytes % (Auto) 24.8 % (13.4-35.0); Mean Corpuscular HGB Conc 33 % (32-34); Mean Corpuscular Volume 98 fl (84-94); Monocytes % (Auto) 12.1 % (0.0-7.3); Platelet Count 219 K/mm3 (140-440); Red Blood Count 4.19 M/mm3 (3.65-5.03); Red Cell Distribution Width 13.4 % (13.2-15.2)
[2020-03-16] MEDS: DEXTROSE 50% IN WATER (25GM) 50 ML SYRINGE IV PRN (08:01)
[2020-03-16 08:04] LABS: BUN/Creatinine Ratio 14; Blood Urea Nitrogen 14 mg/dL (9-20); Calcium 9.1 mg/dL (8.4-10.2); Hemolysis Index 15
[2020-03-16] MEDS: levETIRAcetam 750 MG in DEXTROSE 5% IN WATER 100 ML IV SCH ×2 (10:25→22:48)
[2020-03-16] MEDS: SODIUM CHLORIDE 0.9% 1000 ML 1,000 ML IV SCH ×2 (10:25→22:48)
--- NOTE | 2020-03-16 10:52 | Discharge Summary ---
Providers - Providers Date of Admission: 03/15/20 09:36 Date of discharge: 03/17/20 Attending physician: KAYLEN KELLY 03/15/20 11:24 Consult to Physician [CONS] Routine Comment: Consulting Provider: ALEJANDRINA MEDINA Physician Instructions: Reason For Exam: sz d/o Primary care physician: CLOTH PICKER Hospitalization Reason for admission: sz Condition: Good Hospital course: Patient is a 29 y/o man w/ a h/o seizures. He presented yesterday after he was noted to have had a seizure. He was noted to have another seizure by EMS. Patient was then brought to [facility] for further evaluation. He was reportedly noted to be post-ictal. Of note, patient was admitted with a seizure in May 2019, with a seizure at that time as well, and was started on keppra. The patient was admitted with diagnosis of seizure, metabolic acidosis, mild rhabdomyolysis and acute encephalopathy secondary to post ictal state. The patient was restarted on his medication of Keppra and was increased to 750 mg twice daily. Neurology saw the patient in consultation and CT scan of the head was performed which was found to show no acute abnormalities. Neurology reported No driving until cleared by DMV/DPS. The patient received IV fluid hydration and kidney function remained stable. Acidosis resolved. Therefore, patient is felt to receive maximal hospital benefit and will be discharged home after EEG if okay with neurology. Dedicated discharge time 35 minutes. Disposition: DC-01 TO HOME OR SELFCARE Time spent for discharge: 35 - Discharge Diagnoses (1) Postictal state Status: Acute (2) Rhabdomyolysis Status: Acute (3) Seizure Status: Acute (4) Acute metabolic encephalopathy Status: Acute Core Measure Documentation - Palliative Care Palliative Care/ Comfort Measures: Not Applicable - Core Measures Any of the following diagnoses?: none Exam - Constitutional Vitals: Temp Pulse Resp BP Pulse Ox 98.3 F 100 H 18 130/57 90 03/16/20 04:24 03/16/20 04:24 03/16/20 04:24 03/16/20 04:24 03/16/20 04:24 General appearance: Present: no acute distress, well-nourished - EENT Eyes: Present: PERRL ENT: hearing intact, clear oral mucosa - Neck Neck: Present: supple, normal ROM - Respiratory Respiratory effort: normal Respiratory: bilateral: CTA - Cardiovascular Heart Sounds: Present: S1 & S2. Absent: rub, click - Extremities Extremities: pulses symmetrical, No edema Peripheral Pulses: within normal limits - Abdominal General gastrointestinal: Present: soft, non-tender, non-distended, normal bowel sounds Male genitourinary: Present: normal - Integumentary Integumentary: Present: clear, warm, dry - Musculoskeletal Musculoskeletal: gait normal, strength equal bilaterally - Psychiatric Psychiatric: appropriate mood/affect, intact judgment & insight - Neurologic Neurologic: CNII-XII intact, moves all extremities Plan Activity: advance as tolerated Weight Bearing Status: Weight Bear as Tolerated Diet: regular Follow up with: PRIMARY CARE, [Primary Care Provider] - 3-5 Days ALEJANDRINA MEDINA MD [Staff Physician] - 7 Days Prescriptions: levETIRAcetam [Keppra TAB] 750 mg PO BID #60 tablet
--- NOTE | 2020-03-16 12:41 | Progress Note ---
Assessment and Plan Patient is a 29 y/o man w/ a h/o seizures, who p/w seizure at home and also noted by EMS en route to hospital. According to the patient's clinical findings, he has had a seizure. Plan: 1. Seizure: - CT head: No acute abnormalities. - Check EEG. To be interpreted by in-house neurologist. - Pending. - Continue keppra 750mg BID. -No driving until cleared by DMV/DPS. Patient understood and accepted this. Also discussed seizure precautions with patient. - If patient has a seizure lasting >2 minutes, recommend giving ativan 1mg IV st at. If seizure does not resolve within 2 minutes, can repeat x1. Please call primary team and neurology stat if patient has a seizure. - Check UDS- Pending. - Further workup/management of possible infection/metabolic abnormalities per primary team, as patient found to have elevated WBC. - Per nurses note, she spoke to patient's girlfriend, who stated that he has not been compliant with seizure medication, and has had a h/o seizures for 4 years. - Will continue to monitor patient. Once patient is more awake and able to ambulate by himself, would agree with discharge. Thank you for allowing me to take part in the care of this patient. Adeel Brasher MD Neurology This clinical encounter was provided via live telemedicine platform. Consultative service was provided for neurology to support local providers. The Acute Teleneurology team should be contacted with any neurologic worsening or clinical changes, new test results, or new patient history that is reported to or discovered by the local team following completion of the teleneurology consultation, specifically that which has the potential to impact the consultative recommendations. Patient/Family was informed the Neurology Consult would happen via TeleHealth consult by way of interactive audio and video telecommunications and consented to receiving care in this manner. Due to the potential for life-threatening deterioration due to underlying neurologic illness, and limited resources available for patient care, tel emedicine was used as means of patient care. Telemedicine consultation is limited in the extent of physical exam that can be virtually provided. Time spent evaluating patient includes time for face to face visit via telemedicine, review of medical records, imaging studies and discussion of findings with providers, the patient and/or family. Subjective Date of service: 03/16/20 Principal diagnosis: Seizure Interval history: No acute events overnight. Objective - Exam Narrative Exam: Patient is lethargic but arouseable, points to mouth and nods head when asked if he bit his tongue, shakes head yes and no, follows complex commands, nonverbal due to tongue bite during seizure. No gaze deviation noted. PERRL, EOMI, no facial weakness noted. Strength 5/5 in all extremities. - Vital Sign Vital Signs - 12hr 03/16/20 03/16/20 01:41 04:24 Temperature 98.3 F Pulse Rate 100 H Respiratory 20 18 Rate Blood Pressure 130/57 O2 Sat by Pulse 90 Oximetry - Laboratory Findings CBC and BMP: 03/16/20 06:47 03/16/20 06:47 Abnormal Lab Findings: Abnormal Labs 03/14/20 03/14/20 03/15/20 22:03 22:03 13:16 WBC 14.9 H MCV 100 H Stokes % (Auto) Stokes # 0.9 H Seg Neutrophils % 74.3 H Seg Neutrophils # 11.1 H Carbon Dioxide 12 L Glucose 126 H POC Glucose 66 L AST 62 H Total Creatine Kinase 3430 H Total Protein 8.4 H 03/16/20 03/16/20 03/16/20 06:47 06:47 07:50 WBC MCV 98 H Stokes % (Auto) 12.1 H Stokes # 1.0 H Seg Neutrophils % Seg Neutrophils # Carbon Dioxide Glucose 69 L POC Glucose 63 L AST Total Creatine Kinase 3969 H Total Protein
[2020-03-16] MEDS: ENOXAPARIN 40 MG/0.4 ML INJ SUB-Q SCH (22:48)
--- NOTE | 2020-03-17 08:48 | Progress Note ---
Assessment and Plan Assessment and plan: Acute encephalopathy. Etiology secondary to post ictal state from seizure. Continue supportive care and monitor closely. Treat underlying causes. Status epilepticus/seizure disorder. Continue Keppra IV. Neurology consultation. Seizure precautions. Rhabdomyolysis. Continue IV fluid hydration follow-up CK in the morning. 03/17/2020. CK level has improved. Patient is much more responsive. Consider discharge in next 24 to 48 hours. - Patient Problems (1) Postictal state Current Visit: Yes Status: Acute (2) Rhabdomyolysis Current Visit: Yes Status: Acute (3) Seizure Current Visit: Yes Status: Acute (4) Acute metabolic encephalopathy Current Visit: No Status: Acute History Interval history: No new issues overnight. Hospitalist Physical - Constitutional Vitals: Temp Pulse Resp BP Pulse Ox 97.6 F 71 18 143/90 95 03/17/20 06:13 03/17/20 06:13 03/17/20 06:13 03/17/20 06:13 03/17/20 06:13 General appearance: Present: no acute distress, well-nourished - EENT Eyes: Present: PERRL, EOM intact ENT: hearing intact, clear oral mucosa, dentition normal - Neck Neck: Present: supple, normal ROM - Respiratory Respiratory effort: normal Respiratory: bilateral: CTA - Cardiovascular Rhythm: regular Heart Sounds: Present: S1 & S2. Absent: gallop, rub - Extremities Extremities: no ischemia, No edema, Full ROM - Abdominal General gastrointestinal: soft, non-tender, non-distended, normal bowel sounds - Integumentary Integumentary: Present: clear, warm, dry - Neurologic Neurologic: CNII-XII intact, moves all extremities Results - Labs CBC & Chem 7: 03/16/20 06:47 03/16/20 06:47 Labs: Laboratory Last Values WBC 8.6 K/mm3 (4.5-11.0) 03/16/20 06:47 RBC 4.19 M/mm3 (3.65-5.03) 03/16/20 06:47 Hgb 13.5 gm/dl (11.8-15.2) 03/16/20 06:47 Hct 41.0 % (35.5-45.6) 03/16/20 06:47 MCV 98 fl (84-94) H 03/16/20 06:47 MCH 32 pg (28-32) 03/16/20 06:47 MCHC 33 % (32-34) 03/16/20 06:47 RDW 13.4 % (13.2-15.2) 03/16/20 06:47 Plt Count 219 K/mm3 (140-440) 03/16/20 06:47 Lymph % (Auto) 24.8 % (13.4-35.0) 03/16/20 06:47 [place] % (Auto) 12.1 % (0.0-7.3) H 03/16/20 06:47 Eos % (Auto) 1.0 % (0.0-4.3) 03/16/20 06:47 Baso % (Auto) 0.6 % (0.0-1.8) 03/16/20 06:47 Lymph # 2.1 K/mm3 (1.2-5.4) 03/16/20 06:47 [place] # 1.0 K/mm3 (0.0-0.8) H 03/16/20 06:47 Eos # 0.1 K/mm3 (0.0-0.4) 03/16/20 06:47 Baso # 0.1 K/mm3 (0.0-0.1) 03/16/20 06:47 Seg Neutrophils % 61.5 % (40.0-70.0) 03/16/20 06:47 Seg Neutrophils # 5.3 K/mm3 (1.8-7.7) 03/16/20 06:47 Sodium 142 mmol/L (137-145) 03/16/20 06:47 Potassium 3.8 mmol/L (3.6-5.0) 03/16/20 06:47 Chloride 105.2 mmol/L (98-107) 03/16/20 06:47 Carbon Dioxide 22 mmol/L (22-30) D 03/16/20 06:47 Anion Gap 19 mmol/L 03/16/20 06:47 BUN 14 mg/dL (9-20) 03/16/20 06:47 Creatinine 1.0 mg/dL (0.8-1.5) 03/16/20 06:47 Estimated GFR > 60 ml/min 03/16/20 06:47 BUN/Creatinine Ratio 14 % 03/16/20 06:47 Glucose 69 mg/dL (75-100) L 03/16/20 06:47 POC Glucose 90 (70-105) 03/17/20 07:06 Calcium 9.1 mg/dL (8.4-10.2) 03/16/20 06:47 Magnesium 2.20 mg/dL (1.7-2.3) 03/14/20 22:03 Total Bilirubin 0.20 mg/dL (0.1-1.2) 03/14/20 22:03 AST 62 units/L (5-40) H 03/14/20 22:03 ALT 37 units/L (7-56) 03/14/20 22:03 Alkaline Phosphatase 81 units/L (35-129) 03/14/20 22:03 Total Creatine Kinase 2492 units/L (55-170) H 03/17/20 05:54 Total Protein 8.4 g/dL (6.3-8.2) H 03/14/20 22:03 Albumin 4.8 g/dL (3.9-5) 03/14/20 22:03 Albumin/Globulin Ratio 1.3 % 03/14/20 22:03 Watson/IV: Voiding Method Toilet IV Catheter Type [Left Upper Peripheral IV arm] IV Catheter Type [Left Wrist] INT / Saline Lock Active Medications - Current Medications Current Medications: Generic Name Dose Route Start Last Admin Trade Name Freq PRN Reason Stop Dose Admin Acetaminophen 650 mg 03/15/20 11:24 Tylenol PO Q4H PRN Pain MILD(1-3)/Fever >100.5/AGUIRRE Dextrose 50 ml 03/15/20 11:24 03/16/20 08:01 D50w (25gm) Syringe IV 50 ml Q30MIN PRN Administration Hypoglycemia Protocol Enoxaparin Sodium 40 mg 03/15/20 22:00 03/16/20 22:48 Enoxaparin SUB-Q 40 mg QDAY@2200 CAL Administration Sodium Chloride 1,000 mls @ 75 mls/hr 03/15/20 11:30 03/16/20 22:48 Nacl 0.9% 1000 Ml IV 75 mls/hr DIRECT CAL Administration Levetiracetam 750 mg/ Dextrose 107.5 mls @ 400 mls/hr 03/15/20 14:00 03/16/20 22:48 IV 400 mls/hr Q12HR CAL Administration Ondansetron HCl 4 mg 03/15/20 11:24 Zofran IV Q8H PRN Nausea And Vomiting Sodium Chloride 10 ml 03/15/20 22:00 03/16/20 22:48 Sodium Chloride Flush Syringe 10 Ml IV 10 ml BID CAL Administration Sodium Chloride 10 ml 03/15/20 11:24 Sodium Chloride Flush Syringe 10 Ml IV PRN PRN LINE FLUSH
[2020-03-17] MEDS: levETIRAcetam 750 MG in DEXTROSE 5% IN WATER 100 ML IV SCH (09:51)
[2020-03-17] MEDS: SODIUM CHLORIDE 0.9% 1000 ML 1,000 ML IV SCH (11:51)
[2020-03-17 12:33] VITALS: BP 160/104
--- NOTE | 2020-03-17 13:32 | Progress Note ---
Assessment and Plan Patient is a 29 y/o man w/ a h/o seizures, who p/w seizure at home and also noted by EMS en route to hospital. According to the patient's clinical findings, he has had a seizure. Plan: 1. Seizure: - CT head: No acute abnormalities. - EEG: generalized slowing. No seizures or epileptiform activity. - Continue keppra 750mg BID. -No driving until cleared by DMV/DPS. Patient understood and accepted this. Also discussed seizure precautions with patient. - If patient has a seizure lasting >2 minutes, recommend giving ativan 1mg IV st at. If seizure does not resolve within 2 minutes, can repeat x1. Please call primary team and neurology stat if patient has a seizure. - Check UDS- Pending. - Further workup/management of possible infection/metabolic abnormalities per primary team, as patient found to have elevated WBC. - Per nurses note, she spoke to patient's girlfriend, who stated that he has not been compliant with seizure medication, and has had a h/o seizures for 4 years. - Recommend for patient to have tongue/mouth evaluated for laceration by either ENT physician or dentist, as he is not verbalizing or eating due to pain from tongue bite that occurred during seizure. Patient is otherwise communicating appropriately with nodding head and hand gestures. - Will sign off, as I am not covering neurology service over the weekend. Please consult neurologist covering the service over the weekend for further neurologic monitoring and management. Thank you for allowing me to take part in the care of this patient. Adeel Brasher MD Neurology This clinical encounter was provided via live telemedicine platform. Consultative service was provided for neurology to support local providers. The Acute Teleneurology team should be contacted with any neurologic worsening or clinical changes, new test results, or new patient history that is reported to or discovered by the local team following completion of the teleneurology consultation, specifically that which has the potential to impact the consultative recommendations. Patient/Family was informed the Neurology Consult would happen via TeleHealth consult by way of interactive audio and video telecommunications and consented to receiving care in this manner. Due to the potential for life-threatening deterioration due to underlying neurologic illness, and limited resources available for patient care, telemedicine was used as means of patient care. Telemedicine consultation is limited in the extent of physical exam that can be virtually provided. Time spent evaluating patient includes time for face to face visit via telemedicine, review of medical records, imaging studies and discussion of findings with providers, the patient and/or family. Subjective Date of service: 03/17/20 Principal diagnosis: Seizure Interval history: No acute events overnight. Objective - Exam Narrative Exam: Patient is awake, alert, points to mouth and nods head when asked if he bit his tongue, shakes head yes and no appropriately to questions, follows complex commands, nonverbal due to tongue bite during seizure. No gaze deviation noted. PERRL, EOMI, no facial weakness noted. Strength 5/5 in all extremities. - Vital Sign Vital Signs - 12hr 03/17/20 03/17/20 06:13 11:51 Temperature 97.6 F 97.8 F Pulse Rate 71 74 Respiratory 18 20 Rate Blood Pressure 143/90 160/104 O2 Sat by Pulse 95 96 Oximetry - Laboratory Findings CBC and BMP: 03/16/20 06:47 03/16/20 06:47 Abnormal Lab Findings: Abnormal Labs 03/14/20 03/14/20 03/15/20 22:03 22:03 13:16 WBC 14.9 H MCV 100 H [place] % (Auto) [place] # 0.9 H Seg Neutrophils % 74.3 H Seg Neutrophils # 11.1 H Carbon Dioxide 12 L Glucose 126 H POC Glucose 66 L AST 62 H Total Creatine Kinase 3430 H Total Protein 8.4 H 03/16/20 03/16/20 03/16/20 06:47 06:47 07:50 WBC MCV 98 H [place] % (Auto) 12.1 H [place] # 1.0 H Seg Neutrophils % Seg Neutrophils # Carbon Dioxide Glucose 69 L POC Glucose 63 L AST Total Creatine Kinase 3969 H Total Protein 03/16/20 03/17/20 17:46 05:54 WBC MCV [place] % (Auto) [place] # Seg Neutrophils % Seg Neutrophils # Carbon Dioxide Glucose POC Glucose 119 H AST Total Creatine Kinase 2492 H Total Protein
[2020-03-17] MEDS ORDERED: levETIRAcetam 500 MG TAB PO SCH (22:00)
== END 2020-03-17 15:40 | disposition home or self-care (01) ==
LOC: ED 21:37 → 3A 03-15 09:36
PROVIDERS: ADMIT Hospitalist; ATTEND Hospitalist
DX: G40.909 Epilepsy, unspecified, not intractable, without status epilepticus (principal); M62.82 Rhabdomyolysis; G93.41 Metabolic encephalopathy; E87.2 Acidosis; Z79.899 Other long term (current) drug therapy
CPT/HCPCS: 36415; 70450; 71045; 80048; 80053; 82550; 82962; 83735; 85025; 95819; 96361; 96365; 96366; 96372; 96375; 96376; 99285; G0378; J1650; J1953; J2060; J2405; J7030

== ENCOUNTER 2021-08-01 12:09 | Emergency (ER) | payer OTHER ==
[2021-08-01] MEDS ORDERED: levETIRAcetam 1000 MG/NS 0.75% 1,000 MG/100 ML BAG IV ONE (12:31)
--- NOTE | 2021-08-01 12:51 | Emergency Department Report ---
HPI - HPI HPI: Room 1 The patient is a 31-year-old male present with a chief complaint of seizures. Patient brought in by EMS reportedly for seizure. Patient has a history of seizure and reportedly takes Keppra. Patient is currently postictal <ROSAURA RDZ - Last Filed: 08/01/21 19:34> <KASSI SENA - Last Filed: 08/01/21 21:58> - General Chief Complaint: Seizure Time Seen by Provider: 08/01/21 12:30 ED Past Medical Hx - Past Medical History Hx Seizures: Yes - Surgical History Past Surgical History?: No - Family History Family history: no significant - Social History Smoking Status: Unknown if ever smoked <ROSAURA RDZ - Last Filed: 08/01/21 19:34> <KASSI SENA - Last Filed: 08/01/21 21:58> - Medications Home Medications: Home Medications Medication Instructions Recorded Confirmed Last Taken Type levETIRAcetam [Keppra TAB] 750 mg PO BID #60 tablet 03/16/20 Unknown Rx levETIRAcetam [Keppra TAB] 500 mg PO BID 30 Days #60 tablet 08/01/21 Unknown Rx ED Review of Systems ROS: Stated complaint: SEIZURE Other details as noted in HPI Comment: Unobtainable due to pts medical conditions (Postictal) <ROSAURA RDZ - Last Filed: 08/01/21 19:34> ROS: Stated complaint: SEIZURE Other details as noted in HPI <KASSI SENA - Last Filed: 08/01/21 21:58> Physical Exam - Physical Exam Vital Signs: Vital Signs 08/01/21 12:17 Temperature 96 F L Pulse Rate 92 H Respiratory 14 Rate Blood Pressure 132/89 [Left] O2 Sat by Pulse 97 Oximetry Physical Exam: GENERAL: The patient is well-developed well-nourished male in postictal state resting on stretcher in no acute distress. [] HEENT: Normocephalic. Atraumatic. Patient has moist mucous membranes. NECK: Supple. Trachea midline CHEST/LUNGS: Clear to auscultation. There is no respiratory distress noted. HEART/CARDIOVASCULAR: Regular. There is no tachycardia. There is no gallop rub or murmur. ABDOMEN: Abdomen is soft, nontender. Patient has normal bowel sounds. There is no abdominal distention. SKIN: There is no rash. There is no edema. There is no diaphoresis. NEURO: The patient is currently postictal and is sleeping on stretcher with both arms laying above his head MUSCULOSKELETAL: There is no evidence of acute injury. <KENDELLROSAURA - Last Filed: 08/01/21 19:34> - Physical Exam Vital Signs: Vital Signs 08/01/21 08/01/21 08/01/21 12:10 12:17 12:20 Temperature 96 F L 98.7 F Pulse Rate 92 H 87 Respiratory 14 22 Rate Blood Pressure Blood Pressure 132/89 [Left] Blood Pressure 126/72 [Right] O2 Sat by Pulse 98 97 98 Oximetry 08/01/21 08/01/21 08/01/21 12:39 13:00 13:30 Temperature Pulse Rate 83 85 Respiratory 23 19 Rate Blood Pressure 111/55 120/80 Blood Pressure [Left] Blood Pressure [Right] O2 Sat by Pulse 69 L 95 Oximetry 08/01/21 08/01/21 08/01/21 14:00 14:29 14:59 Temperature Pulse Rate 84 Respiratory 15 Rate Blood Pressure 126/72 130/79 136/77 Blood Pressure [Left] Blood Pressure [Right] O2 Sat by Pulse Oximetry 08/01/21 08/01/21 08/01/21 15:29 15:59 19:09 Temperature 99.2 F Pulse Rate 85 Respiratory 18 Rate Blood Pressure 126/69 119/71 Blood Pressure [Left] Blood Pressure 123/80 [Right] O2 Sat by Pulse 98 Oximetry <KASSI SENA - Last Filed: 08/01/21 21:58> ED Course Vital Signs 08/01/21 12:17 Temperature 96 F L Pulse Rate 92 H Respiratory 14 Rate Blood Pressure 132/89 [Left] O2 Sat by Pulse 97 Oximetry - Reevaluation(s) Reevaluation #1: 08/01/21 18:37 Patient more awake at this point but still postictal. The patient is slow to respond but answers questions. Patient states he does not remember last time he had his Keppra. Patient still refusing labs. Patient was asked to name the current year and he replied he did not know. Reevaluation #2: 08/01/21 19:34 Patient still not oriented. The patient is currently unaware of which state we are in and says that the current year is 2027 <ROSAURA RDZ - Last Filed: 08/01/21 19:34> Vital Signs 08/01/21 08/01/21 08/01/21 12:10 12:17 12:20 Temperature 96 F L 98.7 F Pulse Rate 92 H 87 Respiratory 14 22 Rate Blood Pressure Blood Pressure 132/89 [Left] Blood Pressure 126/72 [Right] O2 Sat by Pulse 98 97 98 Oximetry 08/01/21 08/01/21 08/01/21 12:39 13:00 13:30 Temperature Pulse Rate 83 85 Respiratory 23 19 Rate Blood Pressure 111/55 120/80 Blood Pressure [Left] Blood Pressure [Right] O2 Sat by Pulse 69 L 95 Oximetry 08/01/21 08/01/21 08/01/21 14:00 14:29 14:59 Temperature Pulse Rate 84 Respiratory 15 Rate Blood Pressure 126/72 130/79 136/77 Blood Pressure [Left] Blood Pressure [Right] O2 Sat by Pulse Oximetry 08/01/21 08/01/21 08/01/21 15:29 15:59 19:09 Temperature 99.2 F Pulse Rate 85 Respiratory 18 Rate Blood Pressure 126/69 119/71 Blood Pressure [Left] Blood Pressure 123/80 [Right] O2 Sat by Pulse 98 Oximetry <KASSI SENA - Last Filed: 08/01/21 21:58> ED Medical Decision Making - Radiology Data Radiology results: report reviewed (CT head), image reviewed (CT head) [place] [address] Cat Scan Report Signed Patient: JONEL MIRANDA MR#: [id number] [birth year] : 1990 Acct:[id number] Age/Sex: 31 / M ADM Date: 08/01/21 Loc: ED Attending Dr: Ordering Physician: ROSAURA RDZ MD Date of Service: 08/01/21 Procedure(s): CT head/brain wo con Accession Number(s): [id number] cc: ROSAURA RDZ MD CT head/brain wo con INDICATION / CLINICAL INFORMATION: 31 years Male; Seizure, persistent postictal state. TECHNIQUE: Routine CT head without contrast. All CT scans at this location are performed using CT dose reduction for ALARA by means of automated exposure control. COMPARISON: The study is compared to previous CT of 03/14/2020. FINDINGS: BRAIN / INTRACRANIAL CONTENTS: The motion degrades the image quality. However, the brain parenchyma appears to demonstrate appropriate attenuation. There is no clear CT evidence of acute intracranial hemorrhage or significant mass effect. I the previous exam of 03/15/2020 could not incompletely evaluated for direct comparison. However, there is continued mild prominence of the temporal horns which appears unchanged from the included sagittal reconstructed images at. The ventricular system is otherwise unremarkable. ORBITS: No significant abnormality of visualized orbits. SINUSES / MASTOIDS: No significant abnormality in the visualized paranasal sinuses or mastoid air cells. CRANIOCERVICAL JUNCTION: No significant abnormality. ADDITIONAL FINDINGS: None. IMPRESSION: 1. There is no clear CT evidence of acute intracranial process. Signer Name: Zachary Benton MD Signed: 08/01/2021 6:19 PM Workstation Name: [id number] Transcribed By: MR Dictated By: Zachary Benton MD Electronically Authenticated By: Zachary Benton MD Signed Date/Time: 08/01/211818 DD/ 12 TD/TT: Print Cancel - Differential Diagnosis Seizure <ROSAURA RDZ - Last Filed: 08/01/21 19:34> - Medical Decision Making Patient is awake alert oriented x4. He is able to arrange his own transportation home. Discharged home. <KASSI SENA - Last Filed: 08/01/21 21:58> Critical care attestation.: If time is entered above; I have spent that time in minutes in the direct care of this critically ill patient, excluding procedure time. <ROSAURA RDZ - Last Filed: 08/01/21 19:34> Critical care attestation.: If time is entered above; I have spent that time in minutes in the direct care of this critically ill patient, excluding procedure time. <KASSI SENA - Last Filed: 08/01/21 21:58> ED Disposition <ROSAURA RDZ - Last Filed: 08/01/21 19:34> Is pt being admited?: No Does the pt Need Aspirin: No <KASSI SENA - Last Filed: 08/01/21 21:58> Clinical Impression: Seizure Disposition: HOME / SELF CARE / HOMELESS Condition: Stable Instructions: Seizure, Adult Prescriptions: levETIRAcetam [Keppra TAB] 500 mg PO BID 30 Days #60 tablet Referrals: MARY BETH AGUILAR MD [Referring] - 3-5 Days
--- NOTE | 2021-08-01 18:24 | Cat Scan Report ---
CT head/brain wo con INDICATION / CLINICAL INFORMATION: 31 years Male; Seizure, persistent postictal state. TECHNIQUE: Routine CT head without contrast. All CT scans at this location are performed using CT dos e reduction for [place] by means of automated exposure control. COMPARISON: The study is compared to previous CT of 03/14/2020. FINDINGS: BRAIN / INTRACRANIAL CONTENTS: The motion degrades the image quality. However, the brain parenchyma a ppears to demonstrate appropriate attenuation. There is no clear CT evidence of acute intracranial he morrhage or significant mass effect. I the previous exam of 03/15/2020 could not incompletely evaluated for direct comparison. However, there is continued mild prominence of the temporal horns which appea rs unchanged from the included sagittal reconstructed images at. The ventricular system is otherwise unremarkable. ORBITS: No significant abnormality of visualized orbits. SINUSES / MASTOIDS: No significant abnormality in the visualized paranasal sinuses or mastoid air inez ls. CRANIOCERVICAL JUNCTION: No significant abnormality. ADDITIONAL FINDINGS: None. IMPRESSION: 1. There is no clear CT evidence of acute intracranial process. Signer Name: Zachary Benton MD Signed: 08/01/2021 6:19 PM Workstation Name: [id number]
[2021-08-01 23:10] VITALS: BP 114/76
== END 2021-08-01 23:12 | disposition home or self-care (01) ==
LOC: ED 12:09
DX: R56.9 Unspecified convulsions (principal)
CPT/HCPCS: 70450; 96374; 99284; J1953